=== PATIENT | female | born 1995 | race Two or more races ===

== ENCOUNTER 2019-04-07 20:47 | Emergency (ER) | payer SELFPAY ==
[~2019-04-07] VITALS: Ht 165.1 cm; Wt 54.4 kg
--- NOTE | 2019-04-07 21:07 | NUR ---
BIBSELF C/O L BREAST PAIN AND SWELLING X1 DAY +FEVER TO ER BED 2, ORDERS RECEIVED AND CARRIED OUT.
[2019-04-07] MEDS ORDERED: CEFTRIAXONE 1GM BAG (ER ONLY) 50 ML IV ONE (21:09)
[2019-04-07] MEDS ORDERED: HYDROCODONE/APAP 5/325MG 1 EACH TABLET ONE (21:10)
[2019-04-07] MEDS ORDERED: IBUPROFEN 400 MG TABLET ONE (21:10)
[2019-04-07 21:18] LABS: BASOPHILS % (AUTO) 0.1 % (0.0-2.0); HEMATOCRIT 38 % (33-45); HEMOGLOBIN 13.1 g/dL (11.5-14.8); LYMPHOCYTES # (AUTO) 1.8 /CMM (0.8-4.8); LYMPHOCYTES % (AUTO) 9.9 % (20.0-44.0); MEAN CORPUSCULAR HGB CONC 35 g/dl (31.0-36.0); MEAN CORPUSCULAR VOLUME 95 fL (82-100); MONOCYTES # (AUTO) 0.6 /CMM (0.1-1.30); MONOCYTES % (AUTO) 3.4 % (2.0-12.0); NEUTROPHILS # (AUTO) 15.6 /CMM (1.8-8.9); NEUTROPHILS % (AUTO) 86.6 % (43.0-81.0); PLATELET COUNT (AUTO) 256 /CMM (150-450); RED BLOOD CELL COUNT(AUTO) 3.99 MIL/uL (4.0-5.2); WHITE BLOOD COUNT (AUTO) 18.1 K/uL (4.3-11.0)
[2019-04-07] MEDS ORDERED: IBUPROFEN 400 MG TABLET PO ONE (21:30)
[2019-04-07] MEDS ORDERED: CEFTRIAXONE 1 G in IV D5W 50 ML IV SCH (21:30)
[2019-04-07] MEDS ORDERED: HYDROCODONE/APAP 5/325MG 1 EACH TABLET PO ONE (21:30)
[2019-04-07 21:31] LABS: CREATININE 0.9 mg/dL (0.6-1.3); POTASSIUM 3.5 mmol/L (3.5-5.1)
--- NOTE | 2019-04-07 22:44 | NUR ---
PT RESTING COMFORTABLY, NO PAIN AT REST, FEELS L BREAST SORE BUT NO PAIN.
[2019-04-08] MEDS ORDERED: ACETAMINOPHEN 325 MG TABLET PO ONE (00:30)
[2019-04-08] MEDS ORDERED: ACETAMINOPHEN 325 MG TABLET ONE ×2 (00:32→00:34)
--- NOTE | 2019-04-08 01:06 | NUR ---
Patient discharged to home in stable condition. Written and verbal after care instructions given. Patient verbalizes understanding of instruction.
[2019-04-08 01:07] VITALS: BP 128/73
== END 2019-04-08 01:07 | disposition home or self-care (01) ==
LOC: ER 20:49
DX: N61.0 Mastitis without abscess (principal); R50.9 Fever, unspecified
CPT/HCPCS: 36415; 76642; 80048; 84702; 85025; 96365; 99284; J0696 ×2; J7060

== ENCOUNTER 2019-04-08 17:00 | Emergency (ER) | payer SELFPAY ==
[~2019-04-08] VITALS: Ht 162.6 cm; Wt 63.5 kg
[2019-04-08 17:13] VITALS: BP 124/85
== END 2019-04-08 18:42 | disposition home or self-care (01) ==
LOC: ER 17:00
DX: N61.0 Mastitis without abscess (principal)